=== PATIENT | male | born 1975 | race Asian ===

== ENCOUNTER 2017-02-18 18:53 | Inpatient (IN) | payer BC, OTHER ==
[2017-02-18] MEDS ORDERED: METHYLPREDNISOLONE INJ 125 MG/2 ML SDV IM ONE (19:13)
[2017-02-18] MEDS ORDERED: IPRATROPIUM/ALBUTEROL 0.5-2.5 MG/3 ML AMPUL NEB ONE ×3 (19:13→22:03)
--- NOTE | 2017-02-18 19:16 | ER Document Report ---
ED Medical Screen (RME) - General Chief Complaint: Asthma Exacerbation Stated Complaint: CONGESTION Time Seen by Provider: 02/18/17 19:12 Mode of Arrival: Ambulatory Information source: Patient TRAVEL OUTSIDE OF THE [place] IN LAST 30 DAYS: No - HPI Patient complains to provider of: cough, congestion, wheezing Onset: Yesterday - pt. sent to see his PCP yesterday for the above c/o -- was given abx and prednisone. States he is still wheezing today and having SOB and dyspnea - Related Data Allergies/Adverse Reactions: Penicillins Allergy (Verified 02/18/17 18:58) Home Medications: Current Home Medications Albuterol Sulfate [Albuterol Sulfate 2.5mg/3 mL] 1 inh IN Q4 PRN 02/18/17 [ History] Albuterol Sulfate [Ventolin Hfa] 2 inh IN Q4 PRN 02/18/17 [History] Levofloxacin [Levofloxacin] 1 tab PO DAILY 02/18/17 [History] Metformin HCl [Metformin HCl] 1 tab PO DAILY 02/18/17 [History] Montelukast Sodium [Montelukast Sodium] 1 tab PO DAILY 02/18/17 [History] Prednisone [Prednisone] 1 tab PO DAILY 02/18/17 [History] Past Medical History - Social History Chew tobacco use (# tins/day): No Frequency of alcohol use: None Drug Abuse: None Pulmonary Medical History: Reports: Hx Asthma Renal/ Medical History: Denies: Hx Peritoneal Dialysis Physical Exam - Vital signs Vitals: Temp Pulse Resp BP Pulse Ox 99.5 F 120 H 24 H 124/88 H 92 02/18/17 18:59 02/18/17 18:59 02/18/17 18:59 02/18/17 18:59 02/18/17 18:59 Course - Vital Signs Vital signs: Temp Pulse Resp BP Pulse Ox 99.5 F 120 H 24 H 124/88 H 92 02/18/17 18:59 02/18/17 18:59 02/18/17 18:59 02/18/17 18:59 02/18/17 18:59
--- NOTE | 2017-02-18 20:04 | RADIOLOGY REPORT (SQ) ---
EXAM DESCRIPTION: CHEST PA/LAT COMPLETED DATE/TIME: 02/18/2017 7:54 pm REASON FOR STUDY: sob COMPARISON: 03/21/2014. EXAM PARAMETERS: NUMBER OF VIEWS: two views TECHNIQUE: Digital Frontal and Lateral radiographic views of the chest acquired. RADIATION DOSE: NA LIMITATIONS: none FINDINGS: LUNGS AND PLEURA: No opacities, masses or pneumothorax. No pleural effusion. MEDIASTINUM AND HILAR STRUCTURES: No masses or contour abnormalities. HEART AND VASCULAR STRUCTURES: Heart normal size. No evidence for failure. BONES: No acute findings. HARDWARE: None in the chest. OTHER: No other significant finding. IMPRESSION: NO SIGNIFICANT RADIOGRAPHIC FINDING IN THE CHEST. TECHNICAL DOCUMENTATION: JOB ID: [id number] [email or web address]- All Rights Reserved
[2017-02-18 20:08] LABS: ABSOLUTE BASOPHILS # (AUTO) 0.1 10^3/uL (0.0-0.2); ABSOLUTE EOSINOPHILS # (AUTO) 0.1 10^3/uL (0.0-0.6); ABSOLUTE LYMPHOCYTES (AUTO) 0.7 10^3/uL (0.5-4.7); ABSOLUTE MONOCYTES (AUTO) 0.6 10^3/uL (0.1-1.4); ABSOLUTE NEUT (AUTO) 10.7 10^3/uL (1.7-8.2); BASOPHILS % (AUTO) 0.7 % (0-2); HEMATOCRIT 44.5 % (37.9-51.0); HEMOGLOBIN 14.5 g/dL (13.5-17.0); LYMPHOCYTES % (AUTO) 5.9 % (13-45); MEAN CORPUSCULAR HEMOGLOBIN 21.9 pg (27.0-33.4); MEAN CORPUSCULAR HGB CONC 32.6 g/dL (32.0-36.0); MEAN CORPUSCULAR VOLUME 67 fl (80-97); MONOCYTES % (AUTO) 5.2 % (3-13); RED BLOOD COUNT 6.64 10^6/uL (4.35-5.55); RED CELL DISTRIBUTION WIDTH 15.4 % (11.5-14.0); SEGMENTED NEUTROPHILS % (AUTO) 87.2 % (42-78); WHITE BLOOD COUNT 12.3 10^3/uL (4.0-10.5)
[2017-02-18 20:27] LABS: ALANINE AMINOTRANSFERASE 42 U/L (21-72); ALBUMIN 4.8 g/dL (3.5-5.0); ALKALINE PHOSPHATASE 84 U/L (38-126); ASPARTATE AMINO TRANSFERASE 22 U/L (17-59); BILIRUBIN,DIRECT 0.3 mg/dL (0.0-0.4); BILIRUBIN,TOTAL 1.2 mg/dL (0.2-1.3); BLOOD UREA NITROGEN 11 mg/dL (7-20); CALCIUM 9.5 mg/dL (8.4-10.2); CARBON DIOXIDE 23 mmol/L (22-30); CHLORIDE 102 mmol/L (98-107); CREATININE RESULT 1.25 mg/dL (0.52-1.25); GLUCOSE 110 mg/dL (75-110); TOTAL PROTEIN 8.3 g/dL (6.3-8.2)
[2017-02-18 20:37] LABS: POTASSIUM 4.3 mmol/L (3.6-5.0); SODIUM 144.8 mmol/L (137-145)
[2017-02-18 20:43] LABS: ANION GAP 20 (5-19)
[2017-02-18] MEDS ORDERED: ALBUTEROL SULFATE 0.083% NEB 2.5 MG/3 ML AMPUL NEB ONE ×5 (20:46→23:33)
--- NOTE | 2017-02-18 20:57 | ER Document Report ---
ED Respiratory Problem - General Chief Complaint: Asthma Exacerbation Stated Complaint: CONGESTION Time Seen by Provider: 02/18/17 19:12 Mode of Arrival: Ambulatory TRAVEL OUTSIDE OF THE [place] IN LAST 30 DAYS: No - HPI Patient complains to provider of: Cough, Short of breath Onset: Yesterday Duration: Worse/persistent Quality of pain: No pain Severity: Moderate Context: Hx asthma Short of Breath: Moderate Chest pain/discomfort: Tightness Cough: Productive Sputum amount: Small Sputum color: Yellow Sputum consistency: Mucoid At home treatment: Bronchodilators, CPAP, Oral steroids Associated symptoms: Congestion, Cough, Difficulty breathing, Short of breath, Wheezing Similar symptoms previously: Yes Recently seen / treated by doctor: Yes Notes: Patient is a 41-year-old male with history of asthma who presents to the emergency room complaining of upper respiratory symptoms that have been worsening over the past 2 days with wheezing, cough, cold and congestion, runny nose, cough is productive of light yellowish phlegm, he denies any, is noted to have a temperature of 99 5 in triage area, he did see his primary care provider yesterday and was started on Levaquin as well as prednisone 20 mg daily, prior to coming to the emergency room he used 4-5 nebulizer treatments at home and went through about half of an albuterol inhaler with no relief of symptoms - Related Data Allergies/Adverse Reactions: Penicillins Allergy (Verified 02/18/17 18:58) Home Medications: Current Home Medications Albuterol Sulfate [Albuterol Sulfate 2.5mg/3 mL] 1 inh IN Q4 PRN 02/18/17 [ History] Albuterol Sulfate [Ventolin Hfa] 2 inh IN Q4 PRN 02/18/17 [History] Levofloxacin [Levofloxacin] 1 tab PO DAILY 02/18/17 [History] Metformin HCl [Metformin HCl] 1 tab PO DAILY 02/18/17 [History] Montelukast Sodium [Montelukast Sodium] 1 tab PO DAILY 02/18/17 [History] Prednisone [Prednisone] 1 tab PO DAILY 02/18/17 [History] Past Medical History - General Information source: Patient - Social History Smoking Status: Former Smoker Chew tobacco use (# tins/day): No Frequency of alcohol use: None Drug Abuse: None Family History: Reviewed & Not Pertinent Patient has suicidal ideation: No Patient has homicidal ideation: No Pulmonary Medical History: Reports: Hx Asthma Renal/ Medical History: Denies: Hx Peritoneal Dialysis Review of Systems - Review of Systems Constitutional: No symptoms reported EENT: See HPI Cardiovascular: No symptoms reported Respiratory: See HPI Gastrointestinal: No symptoms reported Genitourinary: No symptoms reported Male Genitourinary: No symptoms reported Musculoskeletal: No symptoms reported Skin: No symptoms reported Hematologic/Lymphatic: No symptoms reported Neurological/Psychological: No symptoms reported -: Yes All other systems reviewed and negative Physical Exam - Vital signs Vitals: Temp Pulse Resp BP Pulse Ox 99.5 F 120 H 24 H 124/88 H 92 02/18/17 18:59 02/18/17 18:59 02/18/17 18:59 02/18/17 18:59 02/18/17 18:59 Interpretation: Tachycardic - General General appearance: Alert In distress: Mild - HEENT Head: Normocephalic, Atraumatic Eyes: Normal Conjunctiva: Normal Extraocular movements intact: Yes Eyelashes: Normal Pupils: PERRL Mucous membranes: Normal Pharynx: Normal Neck: Normal - Respiratory Respiratory status: Labored Chest status: Nontender Breath sounds: Nonproductive cough, Wheezing Chest palpation: Normal - Cardiovascular Rhythm: Regular, Tachycardia Heart sounds: Normal auscultation Murmur: No - Abdominal Inspection: Normal, Obese Distension: No distension Bowel sounds: Normal Tenderness: Nontender Organomegaly: No organomegaly - Back Back: Normal, Nontender - Extremities General upper extremity: Normal inspection, Nontender, Normal color, Normal ROM , Normal temperature General lower extremity: Normal inspection, Nontender, Normal color, Normal ROM , Normal temperature, Normal weight bearing. No: Susanne's sign - Neurological Neuro grossly intact: Yes Cognition: Normal Orientation: AAOx4 Wilson Coma Scale Eye Opening: Spontaneous Samra Coma Scale Verbal: Oriented Samra Coma Scale Motor: Obeys Commands Wilson Coma Scale Total: 15 Speech: Normal Motor strength normal: LUE, RUE, LLE, RLE Sensory: Normal - Psychological Associated symptoms: Normal affect, Normal mood - Skin Skin Temperature: Warm Skin Moisture: Dry Skin Color: Normal Course - Re-evaluation Re-evalutation: 02/18/17 23:37 Patient continues to have wheezing in all quintana, actually seems worse than 1 from I initially evaluated him, he has periods of desaturation going down to 85 % at times, therefore was placed on BiPAP and discussed with the hospitalist who agrees to admit for Dr. Medrano - Vital Signs Vital signs: Temp Pulse Resp BP Pulse Ox 99.5 F 120 H 22 H 124/88 H 96 02/18/17 18:59 02/18/17 18:59 02/18/17 23:31 02/18/17 18:59 02/18/17 23:31 - Laboratory Result Diagrams: 02/18/17 20:00 02/18/17 20:00 Laboratory results interpreted by me: 02/18/17 02/18/17 20:00 20:00 WBC 12.3 H RBC 6.64 H MCV 67 L MCH 21.9 L RDW 15.4 H Seg Neutrophils % 87.2 H Lymphocytes % 5.9 L Absolute Neutrophils 10.7 H Anion Gap 20 H Total Protein 8.3 H - Diagnostic Test Radiology reviewed: Image reviewed, Reports reviewed - EKG Interpretation by Me EKG shows normal: Sinus rhythm Rate: Tachycardia When compared to previous EKG there are: No significant change - Transfer of Care Care transferred to following provider: Dr. Huffman Critical Care Note - Critical Care Note Total time excluding time spent on procedures (mins): 35 Comments: Patient with acute exit exacerbation of asthma, requiring BiPAP placement, multiple breathing treatments, multiple re-evaluations and admission to the [facility] Discharge - Discharge Clinical Impression: Acute asthma exacerbation Qualifiers: Asthma severity: severe Asthma persistence: persistent Qualified Code(s): J45.51 - Severe persistent asthma with (acute) exacerbation Condition: Fair Disposition: ADMITTED INPATIENT Admitting Provider: Hospitalist Unit Admitted: [facility]
[2017-02-18 23:11] LABS: VENOUS BLOOD BASE EXCESS -1.3 mmol/L; VENOUS BLOOD HCO3 24.4 mmol/L (20-32); VENOUS BLOOD PCO2 44.3 mmHg (35-63); VENOUS BLOOD PH 7.36 (7.30-7.42)
[2017-02-18] MEDS ORDERED: ACETAMINOPHEN 325 MG TABLET PO PRN (23:34)
[2017-02-18] MEDS ORDERED: LEVALBUTEROL HCL NEB 1.25 MG/3 ML AMPUL NEB PRN (23:34)
[2017-02-19] MEDS: MAGNESIUM SULFATE/D5W 1 GM/100 ML RTUPB IV SCH ×2 (00:22→00:25)
[2017-02-19] MEDS: METHYLPREDNISOLONE INJ 125 MG/2 ML SDV IV SCH ×5 (00:23→23:09)
[2017-02-19] MEDS: NORMAL SALINE 1000 ML 1,000 ML IV PRN ×3 (00:24→18:23)
[2017-02-19 02:01] LABS: APPEARANCE,URINE CLEAR; BILIRUBIN,URINE NEGATIVE (NEGATIVE); GLUCOSE, URINE >=500 mg/dL (NEGATIVE); KETONES,URINE TRACE mg/dL (NEGATIVE); LEUKOCYTE ESTERASE,URINE NEGATIVE (NEGATIVE); NITRITE,URINE NEGATIVE (NEGATIVE); PROTEIN,URINE NEGATIVE (NEGATIVE); URINE SPECIFIC GRAVITY 1.017; UROBILINOGEN,URINE NEGATIVE mg/dL (<2.0)
[2017-02-19] MEDS: IPRATROPIUM/ALBUTEROL 0.5-2.5 MG/3 ML AMPUL NEB SCH ×4 (02:08→20:02)
[2017-02-19] MEDS ORDERED: INFLUENZA ADLT QUAD (36MOS+) 2017-18 VAC 0.5 ML SYR IM PRN (02:27)
[2017-02-19] MEDS ORDERED: DEXTROSE 50%-WATER 25 GM/50 ML DISP.SYRIN IV PRN ×2 (03:01)
[2017-02-19] MEDS ORDERED: DEXTROSE 40% GEL 15 GM TUBE PO PRN ×2 (03:01)
[2017-02-19] MEDS ORDERED: GLUCAGON,HUMAN RECOMB 1 MG INJ IM PRN (03:01)
[2017-02-19] MEDS ORDERED: KETOROLAC TROMETHAMINE INJ/PF 30 MG/1 ML SDV IV PRN (03:06)
--- NOTE | 2017-02-19 03:12 | PDOC H&P ---
History of Present Illness Admission Date/PCP: 02/18/17 23:40 DUC GALVEZ History of Present Illness: IGNACIO JEWELL is a 41 year old male with past medical history of asthma, diabetes , obstructive sleep apnea who presents to the emergency department with shortness of breath. Patient reports that he has had about 48 hours of sneezing , congestion, and rhinorrhea. He went to his primary care physician yesterday and was prescribed Levaquin and prednisone. He reports that he began having worsening chest tightness and difficulty breathing today and took a breathing treatment and used his inhaler but this did not help. He reports that he was hospitalized last year for his asthma. He denied any associated fevers or chills with this process but does report a history of yellow phlegm production. Patient received 6 nebulized treatments in the emergency department and required IV magnesium and the use of BiPAP in order to maintain an acceptable oxygen saturation. He is referred to the hospitalist service for asthma exacerbation. Past Medical History Pulmonary Medical History: Reports: Asthma, Sleep Apnea Endocrine Medical History: Reports: Diabetes Mellitus Type 2 Past Surgical History Past Surgical History: Reports: None Social History Smoking Status: Former Smoker Frequency of Alcohol Use: Occasional Hx Recreational Drug Use: No Hx Prescription Drug Abuse: No - Advance Directive Resuscitation Status: Full Code Surrogate healthcare decision maker:: , [place] Family History Family History: COPD, DM Parental Family History Reviewed: Yes Children Family History Reviewed: NA Sibling(s) Family History Reviewed.: Yes Medication/Allergy Home Medications: Albuterol Sulfate [Albuterol Sulfate 2.5mg/3 mL] 1 inh IN Q4 PRN 02/18/17 Albuterol Sulfate [Ventolin Hfa] 2 inh IN Q4 PRN 02/18/17 Levofloxacin [Levofloxacin] 1 tab PO DAILY 02/18/17 Metformin HCl [Metformin HCl] 1 tab PO DAILY 02/18/17 Montelukast Sodium [Montelukast Sodium] 1 tab PO DAILY 02/18/17 Prednisone [Prednisone] 1 tab PO DAILY 02/18/17 Allergies/Adverse Reactions: Penicillins Allergy (Verified 02/18/17 18:58) Review of Systems Constitutional: ABSENT: chills, fever(s), headache(s), weight gain, weight loss Eyes: ABSENT: visual disturbances Ears: ABSENT: hearing changes Nose, Mouth, and Throat: PRESENT: as per HPI Cardiovascular: ABSENT: chest pain, dyspnea on exertion, edema, orthropnea, palpitations Respiratory: PRESENT: as per HPI, cough, dyspnea, sputum. ABSENT: hemoptysis Gastrointestinal: ABSENT: abdominal pain, constipation, diarrhea, hematemesis, hematochezia, nausea, vomiting Genitourinary: ABSENT: dysuria, hematuria Musculoskeletal: ABSENT: joint swelling Integumentary: PRESENT: rash - Right arm, right leg. ABSENT: wounds Neurological: ABSENT: abnormal gait, abnormal speech, confusion, dizziness, focal weakness, syncope Psychiatric: ABSENT: anxiety, depression, homidical ideation, suicidal ideation Endocrine: ABSENT: cold intolerance, heat intolerance, polydipsia, polyuria Hematologic/Lymphatic: ABSENT: easy bleeding, easy bruising Physical Exam Vital Signs: Temp Pulse Resp BP Pulse Ox 97.6 F 104 H 19 140/75 H 91 L 02/19/17 01:58 02/19/17 01:58 02/19/17 01:58 02/19/17 00:00 02/19/17 01:58 Intake & Output 02/17/17 02/18/17 02/19/17 06:59 06:59 06:59 Weight 122.2 kg General appearance: PRESENT: severe distress, well-developed, well-nourished Head exam: PRESENT: atraumatic, normocephalic Eye exam: PRESENT: conjunctiva pink, EOMI, PERRLA. ABSENT: scleral icterus Ear exam: PRESENT: normal external ear exam Mouth exam: PRESENT: dry mucosa, tongue midline Neck exam: ABSENT: JVD, lymphadenopathy, thyromegaly, tracheal deviation Respiratory exam: PRESENT: accessory muscle use, chest wall tenderness, retraction - Supraclavicular, symmetrical, tachypnea, wheezes. ABSENT: crackles , prolonged expiratory phas, rales, rhonchi, unlabored Cardiovascular exam: PRESENT: RRR, +S1, +S2, tachycardia. ABSENT: diastolic murmur, gallop, rubs, systolic murmur Pulses: PRESENT: normal dorsalis pedis pul Vascular exam: PRESENT: normal capillary refill GI/Abdominal exam: PRESENT: normal bowel sounds, soft. ABSENT: distended, firm , guarding, mass, organolmegaly, rebound, rigid, tenderness Rectal exam: PRESENT: deferred Extremities exam: PRESENT: full ROM. ABSENT: calf tenderness, clubbing, pedal edema Neurological exam: PRESENT: alert, awake, oriented to person, oriented to place , oriented to time, oriented to situation, CN II-XII grossly intact. ABSENT: motor sensory deficit Psychiatric exam: PRESENT: appropriate affect, normal mood. ABSENT: homicidal ideation, suicidal ideation Skin exam: PRESENT: dry, intact, rash - Linear erythematous papular rash on his medial right arm and right leg, warm. ABSENT: cyanosis Results Laboratory Results: 02/19/17 01:35 Urine Color YELLOW Urine Appearance CLEAR Urine pH 5.0 Ur Specific [place] 1.017 Urine Protein NEGATIVE Urine Glucose (UA) >=500 H Urine Ketones TRACE H Urine Blood SMALL H Urine Nitrite NEGATIVE Ur Leukocyte Esterase NEGATIVE Urine WBC (Auto) 0 02/19/17 00:19 Troponin I < 0.012 02/18/17 02/18/17 02/18/17 20:00 20:00 20:00 WBC 12.3 H RBC 6.64 H Hgb 14.5 MCV 67 L Plt Count 269 VBG pH Sodium 144.8 Potassium 4.3 Chloride 102 Carbon Dioxide 23 Anion Gap 20 H BUN 11 Creatinine 1.25 Albumin 4.8 Influenza A (Rapid) NEGATIVE Influenza B (Rapid) NEGATIVE 02/18/17 23:01 WBC RBC Hgb MCV Plt Count VBG pH 7.36 Sodium Potassium Chloride Carbon Dioxide Anion Gap BUN Creatinine Albumin Influenza A (Rapid) Influenza B (Rapid) Impressions: Chest X-Ray 02/18/17 19:13 IMPRESSION: NO SIGNIFICANT RADIOGRAPHIC FINDING IN THE CHEST. Status: Imported from PACS Assessment & Plan - Diagnosis (1) Acute asthma exacerbation Qualifiers: Asthma severity: severe Asthma persistence: persistent Qualified Code(s) : J45.51 - Severe persistent asthma with (acute) exacerbation Is this a current diagnosis for this admission?: Yes Plan: Place patient on Solu-Medrol 125 mg IV every 6 and scheduled duo nebs as well as as needed Xopenex. Continue BiPAP as needed. (2) JAMES (obstructive sleep apnea) Is this a current diagnosis for this admission?: Yes Plan: Patient normally uses CPAP with a setting of 12. Tonight he will use BiPAP. (3) DM2 (diabetes mellitus, type 2) Qualifiers: Diabetes mellitus complication status: without complication Diabetes mellitus fci insulin use: without terminal manager use Qualified Code(s): E11.9 - Type 2 diabetes mellitus without complications Is this a current diagnosis for this admission?: Yes Plan: Patient reports prediabetes, but is already on Metformin, so I suspect he has very well controlled type 2 diabetes. We will perform Accu-Cheks and sliding scale insulin as patient will be on IV steroids (4) Poison yan dermatitis Is this a current diagnosis for this admission?: Yes Plan: Calamine lotion tid (5) Severe obesity (BMI 35.0-35.9 with comorbidity) Is this a current diagnosis for this admission?: Yes Plan: Encourage appropriate weight loss under the guidance of his physician. - Time Time Spent: 30 to 50 Minutes Medications reviewed and adjusted accordingly: Yes Anticipated discharge: Home Within: Other - Upon improvement of symptomatology - Inpatient Certification Based on my medical assessment, after consideration of the patient's comorbidities, presenting symptoms, or acuity I expect that the services needed warrant INPATIENT care.: Yes I certify that my determination is in accordance with my understanding of Medicare's requirements for reasonable and necessary INPATIENT services [42 CFR 412.3e].: Yes Medical Necessity: Need For IV Fluids, Need for Nebulizer Therapy and Monitoring of Response Post Hospital Care: D/C Groundskeeper Documentation
[2017-02-19 06:20] LABS: HEMATOCRIT 39.6 % (37.9-51.0); HEMOGLOBIN 12.9 g/dL (13.5-17.0); HGB HCT DIFFERENCE -0.9; MEAN CORPUSCULAR HGB CONC 32.5 g/dL (32.0-36.0); MEAN CORPUSCULAR VOLUME 68 fl (80-97); RED BLOOD COUNT 5.86 10^6/uL (4.35-5.55); RED CELL DISTRIBUTION WIDTH 15.7 % (11.5-14.0); WHITE BLOOD COUNT 9.1 10^3/uL (4.0-10.5)
[2017-02-19 06:40] LABS: ANION GAP 19 (5-19); BLOOD UREA NITROGEN 14 mg/dL (7-20); CALCIUM 9.4 mg/dL (8.4-10.2); CARBON DIOXIDE 22 mmol/L (22-30); CHLORIDE 101 mmol/L (98-107); CREATININE RESULT 1.28 mg/dL (0.52-1.25); GLUCOSE 242 mg/dL (75-110); POTASSIUM 4.6 mmol/L (3.6-5.0); SODIUM 141.5 mmol/L (137-145)
[2017-02-19] MEDS: INSULIN LISPRO 100 UNIT/ML 3 ML VIAL SUBCUT PRN ×3 (09:02→23:09)
[2017-02-19] MEDS: METFORMIN HCL 500 MG TABLET PO SCH (09:03)
[2017-02-19] MEDS: ENOXAPARIN SODIUM INJ 40 MG/0.4 ML DISP.SYRIN SUBCUT SCH (09:03)
[2017-02-19] MEDS: GUAIFENESIN 600 MG TABLET.SA PO SCH ×2 (09:03→21:31)
[2017-02-19] MEDS: FAMOTIDINE 20 MG TABLET PO SCH ×2 (09:04→21:31)
--- NOTE | 2017-02-19 09:14 | EKG REPORT ---
SEVERITY:- BORDERLINE ECG - SINUS TACHYCARDIA BORDERLINE INFERIOR Q WAVES : Confirmed by: Trista Petty 19-Feb-2017 09:14:08
[2017-02-19] MEDS: CALAMINE/ZINC OXIDE LOTION 177 ML/BOTTLE TP SCH ×3 (12:39→18:20)
--- NOTE | 2017-02-19 13:20 | Progress Note ---
Provider Note Provider Note: Patient seen after midnight admission has tolerated nebulizers well seen to be less wheezing stated by the patient and staff. Patient states he feels a little better. Afebrile not concerning for signs of sepsis or infection suspect it was a asthmatic event. Continue to monitor.
[2017-02-19] MEDS: MONTELUKAST SODIUM 10 MG TABLET PO SCH (21:31)
[2017-02-20] MEDS: IPRATROPIUM/ALBUTEROL 0.5-2.5 MG/3 ML AMPUL NEB SCH ×4 (02:00→20:03)
[2017-02-20] MEDS: METHYLPREDNISOLONE INJ 125 MG/2 ML SDV IV SCH (06:12)
[2017-02-20] MEDS: NORMAL SALINE 1000 ML 1,000 ML IV PRN (06:12)
[2017-02-20] MEDS: ENOXAPARIN SODIUM INJ 40 MG/0.4 ML DISP.SYRIN SUBCUT SCH (10:02)
[2017-02-20] MEDS: METFORMIN HCL 500 MG TABLET PO SCH (10:03)
[2017-02-20] MEDS: FAMOTIDINE 20 MG TABLET PO SCH ×2 (10:03→21:16)
[2017-02-20] MEDS: GUAIFENESIN 600 MG TABLET.SA PO SCH ×2 (10:03→21:16)
[2017-02-20] MEDS: CALAMINE/ZINC OXIDE LOTION 177 ML/BOTTLE TP SCH ×3 (10:04→17:39)
[2017-02-20] MEDS ORDERED: FLUTICASONE NASAL SPRAY 50 MCG/SPRY 120 SPRAY/16 GM NASL ONE (11:39)
[2017-02-20] MEDS ORDERED: LORATADINE 10 MG TABLET PO ONE (11:42)
[2017-02-20] MEDS ORDERED: PHENOL/SODIUM PHENOLATE 100 SPRAY/177 ML BOTTLE PO PRN (11:44)
--- NOTE | 2017-02-20 12:21 | PROGRESS NOTE E ---
Progress Note NAME: IGNACIO SHEARER : 1975 AGE: 41Y DATE: 02/20/2017 ROOM: 313 CHIEF COMPLAINT: Shortness of breath. SUBJECTIVE: The patient is lying in bed. He still does have his BiPAP in place. The patient denies any nausea, vomiting, diarrhea. The patient admits to significant sore throat, which he states has been present since last week and is what initially took him to his primary care provider's office. The patient himself denies any fevers, chills. No dizziness, weakness. The patient states that he has been producing a good amount of sputum; however, he is still quite short of breath, even with ambulation to the bathroom. The patient does not voice any other concerns at this time. REVIEW OF SYSTEMS: Negative. MEDICATIONS: Medications have been reviewed. OBJECTIVE: GENERAL: The patient is a 41-year-old male, who is awake, alert. He is oriented to person, place, time and situation. He is conversational, verbal. Does not appear to be in any acute distress. He is now able to fully complete sentences. VITAL SIGNS ARE FOLLOWS: Temperature is 97.6, pulse 62, respirations 17, blood pressure 120/90. Oxygen saturation 98% on 30% FiO2 on BiPAP. SKIN: Warm and dry. No rashes. Not diaphoretic. HEENT: Pupils equal, round, reactive to light and accommodation. Conjunctivae is pink. The patient does have left mandibular lymphadenopathy, which is obviously asymmetrical in comparison to the patient's right side. NECK: There is no JVP. CARDIOVSCULAR: Heart is regular. There is no murmur or rub. CHEST: The patient does have expiratory wheezes noted throughout both lung quintana. ABDOMEN: Soft, nontender, nondistended. BACK: No CVA tenderness or sacral edema. EXTREMITIES: No clubbing, cyanosis or edema. PSYCHIATRIC: Appropriate affect. Pleasant mood. DIAGNOSTICS: Lab values are as follows: Hematology on 02/19/2017: WBC is 9.1, hemoglobin is 12.9, hematocrit is 39.6, platelet count is 347,000. Chemistry obtained on 02/19/2017: Sodium is 141, potassium 4.6, chloride is 101, carbon dioxide is 22. BUN 14, creatinine 1.28, glucose 242. Calcium is 9.4. IMPRESSION AND PLAN: 1. ACUTE ASTHMA EXACERBATION. Will continue with supplemental O2, but will transition steroids to p.o. The patient does have scheduled DuoNeb, and will continue p.r.n. for breakthrough symptoms. The patient is now producing sputum; therefore, will add a flutter valve and follow him. 2. POSSIBLE PAROTIDITIS. The patient does have significantly swollen jaw with evidence of lymphadenopathy. Will obtain contrasted CT for further evaluation and will add clindamycin for coverage, and follow. 3. SORE THROAT: I feel the patient may likely have a post-nasal drip. Will add Flonase, Chloraseptic spray and antihistamines, and follow. 4. OBSTRUCTIVE SLEEP APNEA. The patient normally uses a CPAP with a setting of 12. 5. DIABETES MELLITUS TYPE 2. Continue metformin and continue sliding scale coverage, given the patient will be on steroids. 6. POISON MIRLANDE DERMATITIS. Continue calamine lotion p.r.n. 7. MORBID OBESITY, WITH A BMI OF 36. Will encourage weight reduction and followup. DISPOSITION: The patient is a FULL CODE. Pending patient's symptomatology and diagnostic findings, will reevaluate in the a.m. for discharge. Time spent on this followup, including assessment, plan, physical examination, patient education, review of previous and current medical records is 30 minutes. DICTATING PHYSICIAN: MARY QUESADA NP [id number] PHY#: [id number] ID: [id number] JOB#: [id number] ACCT: [id number] cc: >
[2017-02-20] MEDS ORDERED: CLINDAMYCIN HCL 150 MG CAPSULE PO ONE (12:30)
[2017-02-20] MEDS: PREDNISONE 20 MG TABLET PO SCH (17:36)
[2017-02-20] MEDS: LACTOBACILLUS ACIDOPHILUS 250 MG TAB PO SCH (17:36)
--- NOTE | 2017-02-20 17:37 | RADIOLOGY REPORT (SQ) ---
EXAM DESCRIPTION: CT FACIAL AREA WITH COMPLETED DATE/TIME: 02/20/2017 4:42 pm REASON FOR STUDY: Left jaw mass? parotitis? COMPARISON: None. TECHNIQUE: Post contrast images through the facial bones and orbits windowed for bone and soft tissu e. Additional coronal and sagittal reconstructed images reviewed. All images stored on PACS. All CT scanners at this facility use dose modulation, iterative reconstruction, and/or weight based d osing when appropriate to reduce radiation dose to as low as reasonably achievable (ALARA). [facility]: Dose Right [facility]: CareDose [facility]: Dose Right [facility]: Teradose 4D [facility]: PrecisionHawk CONTRAST TYPE AND DOSE: contrast/concentration: Isovue 370.00 mg/ml; Total Contrast Delivered: 50.0 ml; Total Saline Delivered: 55.0 ml RENAL FUNCTION: Creatinine 1.3 BUN 14 RADIATION DOSE: 45.9 mGy LIMITATIONS: None. FINDINGS: FACIAL BONES: No fracture or bone lesion. ORBITS: Intact. No fracture. Symmetric intact globes and retroorbital soft tissues. PARANASAL SINUSES: Mild mucoperiosteal changes in both maxillary sinuses. There is opacification of a couple of ethmoid air cells. No nasal polyps. Maxillary sinus outlets are patent. SOFT TISSUES: The left parotid gland is perhaps slightly larger than the right. The attenuation is t he same in each. There is no enhancement. There is no edema. There is no stranding in the fat arou nd the parotid gland. There is no mass in the neck. INFERIOR BRAIN: Limited view. No acute findings. OTHER: No other significant finding. IMPRESSION: Mild sinus disease. There is no evidence of parotitis. There is no mass in the neck. TECHNICAL DOCUMENTATION: JOB ID: [id number] Quality ID # [id number]: Final reports with documentation of one or more dose reduction techniques (e.g., Au tomated exposure control, adjustment of the mA and/or kV according to patient size, use of iterative reconstruction technique) 2010 [employer]- All Rights Reserved
[2017-02-20] MEDS: CLINDAMYCIN HCL 150 MG CAPSULE PO SCH ×2 (17:42→23:30)
[2017-02-20] MEDS: FLUTICASONE NASAL SPRAY 50 MCG/SPRY 120 SPRAY/16 GM NASL SCH (21:15)
[2017-02-20] MEDS: MONTELUKAST SODIUM 10 MG TABLET PO SCH (21:16)
[2017-02-21] MEDS: IPRATROPIUM/ALBUTEROL 0.5-2.5 MG/3 ML AMPUL NEB SCH ×4 (02:23→19:52)
[2017-02-21] MEDS: CLINDAMYCIN HCL 150 MG CAPSULE PO SCH ×3 (05:36→17:19)
[2017-02-21 07:16] LABS: ANION GAP 12 (5-19); BLOOD UREA NITROGEN 24 mg/dL (7-20); CALCIUM 8.9 mg/dL (8.4-10.2); CARBON DIOXIDE 28 mmol/L (22-30); CHLORIDE 102 mmol/L (98-107); CREATININE RESULT 1.36 mg/dL (0.52-1.25); GLUCOSE 125 mg/dL (75-110); POTASSIUM 4.4 mmol/L (3.6-5.0); SODIUM 142.4 mmol/L (137-145)
[2017-02-21] MEDS: ENOXAPARIN SODIUM INJ 40 MG/0.4 ML DISP.SYRIN SUBCUT SCH (09:11)
[2017-02-21] MEDS: LORATADINE 10 MG TABLET PO SCH (09:12)
[2017-02-21] MEDS: PREDNISONE 20 MG TABLET PO SCH ×2 (09:13→17:19)
[2017-02-21] MEDS: LACTOBACILLUS ACIDOPHILUS 250 MG TAB PO SCH ×2 (09:13→17:20)
[2017-02-21] MEDS: FAMOTIDINE 20 MG TABLET PO SCH ×2 (09:13→22:48)
[2017-02-21] MEDS: GUAIFENESIN 600 MG TABLET.SA PO SCH ×2 (09:13→22:48)
[2017-02-21] MEDS: FLUTICASONE NASAL SPRAY 50 MCG/SPRY 120 SPRAY/16 GM NASL SCH ×2 (09:14→22:49)
[2017-02-21] MEDS: CALAMINE/ZINC OXIDE LOTION 177 ML/BOTTLE TP SCH ×3 (09:20→17:21)
--- NOTE | 2017-02-21 12:05 | PDOC PROGRESS REPORT ---
Subjective Progress Note for:: 02/21/17 Subjective:: Patient was seen resting in bed comfortably with family present. He had just returned from ambulating in the hallways on room air. Nursing reports that his oxygen saturations did drop to 89% and heart rate raised to 101. He did not, however, experienced dyspnea and was conversational while ambulating which is a significant improvement overnight. He is continuing to use BiPAP as needed throughout the day. He does have a CPAP machine which he uses nightly at home. He also has access to a nebulizer, however, states that this she has greater than 10 years old and does not aerosolized his medicines well. He requests a new one upon discharge. He reports continuous wheezing, frequent nonproductive cough, sore throat, and shortness of breath with activity. Overall, he reports that he is feeling much improved as compared to day of admission. He denies fever, chills, regalado, dizziness, chest pain, palpitations. He has no other questions or concerns today. Physical Exam Vital Signs: Temp Pulse Resp BP Pulse Ox 97.3 F 61 17 114/68 95 02/21/17 08:26 02/21/17 08:26 02/21/17 08:26 02/21/17 08:26 02/21/17 08:26 Pulse Oximeter Continuous Start: 02/18/17 23: 35 Freq: RTQ4 Status: Active Document 02/21/17 08:03 [facility] [place], [place] (Rec: 02/21/17 10:09 [facility] [place] [place] [email or web address]) Pulse Oximetry Assessment Oxygen Saturation (92-100) 97 Oxygen Delivery Method Bi-pap Fraction of Inspired Oxygen (FIO2) 30 Equipment Usage Equipment in Use Continuous SpO2 Machine # N 4 Intake & Output 02/20/17 02/21/17 02/22/17 06:59 06:59 06:59 Intake Total 0003 6771 Balance 4773 1451 Weight 122.4 kg 123.6 kg General appearance: PRESENT: no acute distress, well-developed, well-nourished, other - overweight Head exam: PRESENT: atraumatic, normocephalic Eye exam: PRESENT: conjunctiva pink, EOMI, PERRLA. ABSENT: scleral icterus Ear exam: PRESENT: normal external ear exam Mouth exam: PRESENT: moist, tongue midline, other - mandibular lymphadenopathy; chronic Neck exam: ABSENT: carotid bruit, JVD, lymphadenopathy, thyromegaly Respiratory exam: PRESENT: symmetrical, unlabored, wheezes - Expiratory and inspiratory wheezing throughout. ABSENT: rales, rhonchi, tachypnea Cardiovascular exam: PRESENT: RRR. ABSENT: diastolic murmur, rubs, systolic murmur Pulses: PRESENT: normal dorsalis pedis pul Vascular exam: PRESENT: normal capillary refill GI/Abdominal exam: PRESENT: normal bowel sounds, soft. ABSENT: distended, guarding, mass, organolmegaly, rebound, tenderness Rectal exam: PRESENT: deferred Extremities exam: PRESENT: full ROM. ABSENT: calf tenderness, clubbing, pedal edema Neurological exam: PRESENT: alert, awake, oriented to person, oriented to place , oriented to time, oriented to situation, CN II-XII grossly intact. ABSENT: motor sensory deficit Psychiatric exam: PRESENT: appropriate affect, normal mood. ABSENT: homicidal ideation, suicidal ideation Skin exam: PRESENT: dry, intact, warm. ABSENT: cyanosis, rash Results Laboratory Results: 02/19/17 05:28 02/21/17 05:31 02/21/17 05:31 Sodium 142.4 Potassium 4.4 Chloride 102 Carbon Dioxide 28 Anion Gap 12 BUN 24 H Creatinine 1.36 H Est GFR ( Amer) > 60 Est GFR (Non-Af Amer) 58 L Glucose 125 H Calcium 8.9 02/19/17 02/19/17 02/19/17 00:19 05:28 12:30 Troponin I < 0.012 < 0.012 < 0.012 Impressions: Chest X-Ray 02/18/17 19:13 IMPRESSION: NO SIGNIFICANT RADIOGRAPHIC FINDING IN THE CHEST. Facial Bones CT 02/20/17 00:00 IMPRESSION: Mild sinus disease. There is no evidence of parotitis. There is no mass in the neck. Assessment & Plan - Diagnosis (1) Acute asthma exacerbation Qualifiers: Asthma severity: severe Asthma persistence: persistent Qualified Code(s) : J45.51 - Severe persistent asthma with (acute) exacerbation Is this a current diagnosis for this admission?: Yes Plan: Improving; pt now using BiPAP prn and qHS. Otherwise, he is maintaining oxygen saturations on room air while at rest. Ambulatory room air saturations did drop to 89%. Continues to have wheezing throughout. Will continue steroids and scheduled Duonebs. 1- BiPap qHS and prn 2- Supplemental oxygen to keep oxygen saturations > 90% 3- Prednisone 40 mg p.o BID 4- Scheduled Duonebs and prn Xopenex 5- Singulair daily 6- Resume Advair (2) Lymphadenopathy, submandibular Is this a current diagnosis for this admission?: Yes Plan: Patient and family member report several months of facial swelling. He has been seen by his dentist and primary care provider who is currently attempting to find an in network referral to ENT for evaluation. Contrasted facial CT was completed yesterday and demonstrated mild sinus disease without evidence of parotiditis or masses in the neck. He was started on clindamycin yesterday for empiric coverage parotiditis; this will be continued as it will also provide appropriate coverage for sinusitis which may be the source of his lymphadenopathy. Results were discussed with the patient, recommend that he follow-up with primary care provider and continue with plan to be evaluated by ENT if symptoms do not resolve after completion of antibiotic course. (3) DM2 (diabetes mellitus, type 2) Qualifiers: Diabetes mellitus complication status: without complication Diabetes mellitus custodial insulin use: without custodial use Qualified Code(s): E11.9 - Type 2 diabetes mellitus without complications Is this a current diagnosis for this admission?: Yes Plan: 1-continue metformin [id number] before meals and at bedtime with sliding scale coverage (4) JAMES (obstructive sleep apnea) Is this a current diagnosis for this admission?: Yes Plan: 1- BiPAP qHS (5) Poison yan dermatitis Is this a current diagnosis for this admission?: Yes Plan: Calamine prn (6) Severe obesity (BMI 35.0-35.9 with comorbidity) Is this a current diagnosis for this admission?: Yes (7) Sore throat Is this a current diagnosis for this admission?: Yes Plan: Likely r/t post nasal drip; now with CT confirmed mild sinusitis supporting conclusion. 1- Continue with flonase, chloraseptic spray, antihistamines. 2- Encouraged p.o. fluid intake - Time Time Spent with patient: 25-34 minutes Medications reviewed and adjusted accordingly: Yes Anticipated discharge: Home Within: within 24 hours, within 48 hours - Inpatient Certification Medical Necessity: Need for Nebulizer Therapy and Monitoring of Response
[2017-02-21] MEDS: NORMAL SALINE 1000 ML 1,000 ML IV PRN (12:28)
[2017-02-21] MEDS: MONTELUKAST SODIUM 10 MG TABLET PO SCH (22:48)
[2017-02-21] MEDS: FLUTICASONE/SALMETEROL DISKUS 500-50 MCG/DOSE IH SCH (22:50)
[2017-02-22] MEDS: CLINDAMYCIN HCL 150 MG CAPSULE PO SCH ×5 (01:51→23:06)
[2017-02-22] MEDS: IPRATROPIUM/ALBUTEROL 0.5-2.5 MG/3 ML AMPUL NEB SCH ×4 (02:25→19:58)
[2017-02-22 05:18] LABS: ANION GAP 12 (5-19); BLOOD UREA NITROGEN 25 mg/dL (7-20); CALCIUM 8.8 mg/dL (8.4-10.2); CARBON DIOXIDE 29 mmol/L (22-30); CHLORIDE 101 mmol/L (98-107); CREATININE RESULT 1.35 mg/dL (0.52-1.25); GLUCOSE 99 mg/dL (75-110); POTASSIUM 4.8 mmol/L (3.6-5.0); SODIUM 141.9 mmol/L (137-145)
[2017-02-22] MEDS: ENOXAPARIN SODIUM INJ 40 MG/0.4 ML DISP.SYRIN SUBCUT SCH (10:12)
[2017-02-22] MEDS: FAMOTIDINE 20 MG TABLET PO SCH ×2 (10:13→21:07)
[2017-02-22] MEDS: LORATADINE 10 MG TABLET PO SCH (10:13)
[2017-02-22] MEDS: PREDNISONE 20 MG TABLET PO SCH (10:13)
[2017-02-22] MEDS: LACTOBACILLUS ACIDOPHILUS 250 MG TAB PO SCH ×2 (10:13→18:39)
[2017-02-22] MEDS: GUAIFENESIN 600 MG TABLET.SA PO SCH ×2 (10:13→21:07)
[2017-02-22] MEDS: FLUTICASONE NASAL SPRAY 50 MCG/SPRY 120 SPRAY/16 GM NASL SCH ×2 (10:16→21:07)
[2017-02-22] MEDS: CALAMINE/ZINC OXIDE LOTION 177 ML/BOTTLE TP SCH ×3 (10:17→18:39)
[2017-02-22] MEDS: FLUTICASONE/SALMETEROL DISKUS 500-50 MCG/DOSE IH SCH ×2 (10:17→21:07)
[2017-02-22] MEDS: NORMAL SALINE 1000 ML 1,000 ML IV PRN ×2 (11:43→19:37)
--- NOTE | 2017-02-22 14:15 | PDOC PROGRESS REPORT ---
Subjective Progress Note for:: 02/22/17 Subjective:: Patient was seen resting in bed comfortably on room air. He complains of continued dyspnea on exertion and audible wheezes. He states that he does not feel ready to be discharged home at this time. He denies fever, chills, regalado, dizziness, chest pain, palpitations, and cough. He has no other questions or concerns today. Physical Exam Vital Signs: Temp Pulse Resp BP Pulse Ox 97.5 F 70 16 125/79 93 02/22/17 12:14 02/22/17 12:14 02/22/17 12:14 02/22/17 12:14 02/22/17 12:45 Pulse Oximeter Continuous Start: 02/18/17 23: 35 Freq: RTQ4 Status: Active Document 02/22/17 12:45 [facility] (Rec: 02/22/17 12:49 [email or web address] [email or web address]) Pulse Oximetry Assessment Oxygen Saturation (92-100) 93 Oxygen Delivery Method Nasal Cannula Fraction of Inspired Oxygen (FIO2) 28 Equipment Usage Equipment in Use Continuous SpO2 Machine # N 4 Intake & Output 02/21/17 02/22/17 02/23/17 06:59 06:59 06:59 Intake Total 1451 3577 594 Balance 1451 3577 594 Weight 123.6 kg 123.9 kg General appearance: PRESENT: no acute distress, obese, well-developed, well- nourished Head exam: PRESENT: atraumatic, normocephalic Eye exam: PRESENT: conjunctiva pink, EOMI, PERRLA. ABSENT: scleral icterus Ear exam: PRESENT: normal external ear exam Mouth exam: PRESENT: moist, tongue midline Neck exam: ABSENT: carotid bruit, JVD, lymphadenopathy, thyromegaly Respiratory exam: PRESENT: clear to auscultation drake, wheezes - Inspiratory and expiratory wheezes throughout. ABSENT: rales, rhonchi, tachypnea, unlabored Cardiovascular exam: PRESENT: RRR, +S1, +S2. ABSENT: diastolic murmur, rubs, systolic murmur, tachycardia Pulses: PRESENT: normal dorsalis pedis pul Vascular exam: PRESENT: normal capillary refill GI/Abdominal exam: PRESENT: normal bowel sounds, soft. ABSENT: distended, guarding, mass, organolmegaly, rebound, tenderness Rectal exam: PRESENT: deferred Extremities exam: PRESENT: full ROM. ABSENT: calf tenderness, clubbing, pedal edema Neurological exam: PRESENT: alert, awake, oriented to person, oriented to place , oriented to time, oriented to situation, CN II-XII grossly intact. ABSENT: motor sensory deficit Psychiatric exam: PRESENT: appropriate affect, normal mood. ABSENT: homicidal ideation, suicidal ideation Skin exam: PRESENT: dry, intact, warm. ABSENT: cyanosis, rash Results Laboratory Results: 02/19/17 05:28 02/22/17 04:12 02/22/17 04:12 Sodium 141.9 Potassium 4.8 Chloride 101 Carbon Dioxide 29 Anion Gap 12 BUN 25 H Creatinine 1.35 H Est GFR ( Amer) > 60 Est GFR (Non-Af Amer) 58 L Glucose 99 Calcium 8.8 02/19/17 02/19/17 02/19/17 00:19 05:28 12:30 Troponin I < 0.012 < 0.012 < 0.012 Impressions: Chest X-Ray 02/18/17 19:13 IMPRESSION: NO SIGNIFICANT RADIOGRAPHIC FINDING IN THE CHEST. Facial Bones CT 02/20/17 00:00 IMPRESSION: Mild sinus disease. There is no evidence of parotitis. There is no mass in the neck. Assessment & Plan - Diagnosis (1) Acute asthma exacerbation Qualifiers: Asthma severity: severe Asthma persistence: persistent Qualified Code(s) : J45.51 - Severe persistent asthma with (acute) exacerbation Is this a current diagnosis for this admission?: Yes Plan: Slow improvements; pt now using BiPAP qHS only. Otherwise, he is maintaining oxygen saturations on room air while at rest. He did maintain ambulatory room air saturations greater than 92% with a heart rate of 86. However, he continues to have wheezing throughout. Will continue steroids and scheduled Duonebs. 1- BiPap qHS and prn 2- Supplemental oxygen to keep oxygen saturations > 90% 3- Escalate steroid dosing to Solu-Medrol 40 mg every 8 4- Scheduled Duonebs and prn Xopenex 5- Singulair daily 6- Continue Advair (2) ARF (acute renal failure) Qualifiers: Acute renal failure type: unspecified Qualified Code(s): N17.9 - Acute kidney failure, unspecified Is this a current diagnosis for this admission?: Yes Plan: Patient with acute renal insufficiency, creatinine unchanged today at 1.35 which is slightly elevated from time of admission at 1.25. Unknown baseline kidney function, there is likely a component of chronic kidney disease given his obesity and uncontrolled type 2 diabetes mellitus. Will avoid nephrotoxic medications and continue IV fluids. 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 Likely r/t post nasal drip; now with CT confirmed mild sinusitis supporting conclusion. 1- Continue with flonase, chloraseptic spray, antihistamines. 2- Encouraged p.o. fluid intake (7) Severe obesity (BMI 35.0-35.9 with comorbidity) Is this a current diagnosis for this admission?: Yes (8) Lymphadenopathy, submandibular Is this a current diagnosis for this admission?: Yes Plan: Stable. Patient and family member report several months of facial swelling. He has been seen by his dentist and primary care provider who is currently attempting to find an in network referral to ENT for evaluation. Contrasted facial CT was completed yesterday and demonstrated mild sinus disease without evidence of parotiditis or masses in the neck. He was started on clindamycin yesterday for empiric coverage parotiditis; this will be continued as it will also provide appropriate coverage for sinusitis which may be the source of his lymphadenopathy. Results were discussed with the patient, recommend that he follow-up with primary care provider and continue with plan to be evaluated by ENT if symptoms do not resolve after completion of antibiotic course. - Time Time Spent with patient: 25-34 minutes Medications reviewed and adjusted accordingly: Yes Anticipated discharge: Home Within: within 48 hours - Inpatient Certification Medical Necessity: Need For IV Fluids
[2017-02-22] MEDS: METHYLPREDNISOLONE INJ 40 MG/1 ML SDV IV SCH ×2 (14:25→21:06)
[2017-02-22] MEDS: MONTELUKAST SODIUM 10 MG TABLET PO SCH (21:07)
[2017-02-23] MEDS: IPRATROPIUM/ALBUTEROL 0.5-2.5 MG/3 ML AMPUL NEB SCH ×4 (02:03→20:01)
[2017-02-23] MEDS: NORMAL SALINE 1000 ML 1,000 ML IV PRN (03:42)
[2017-02-23] MEDS: METHYLPREDNISOLONE INJ 40 MG/1 ML SDV IV SCH ×3 (05:06→21:44)
[2017-02-23] MEDS: CLINDAMYCIN HCL 150 MG CAPSULE PO SCH ×4 (05:06→23:22)
[2017-02-23 06:18] LABS: HEMATOCRIT 41.7 % (37.9-51.0); HEMOGLOBIN 13.5 g/dL (13.5-17.0); HGB HCT DIFFERENCE -1.2; MEAN CORPUSCULAR HEMOGLOBIN 21.8 pg (27.0-33.4); MEAN CORPUSCULAR HGB CONC 32.2 g/dL (32.0-36.0); MEAN CORPUSCULAR VOLUME 68 fl (80-97); RED BLOOD COUNT 6.18 10^6/uL (4.35-5.55); RED CELL DISTRIBUTION WIDTH 15.2 % (11.5-14.0); WHITE BLOOD COUNT 10.6 10^3/uL (4.0-10.5)
[2017-02-23 06:39] LABS: ANION GAP 14 (5-19); BLOOD UREA NITROGEN 21 mg/dL (7-20); CALCIUM 9.1 mg/dL (8.4-10.2); CARBON DIOXIDE 28 mmol/L (22-30); CHLORIDE 101 mmol/L (98-107); CREATININE RESULT 1.18 mg/dL (0.52-1.25); GLUCOSE 128 mg/dL (75-110); POTASSIUM 4.8 mmol/L (3.6-5.0); SODIUM 142.7 mmol/L (137-145)
[2017-02-23] MEDS: FLUTICASONE/SALMETEROL DISKUS 500-50 MCG/DOSE IH SCH ×2 (10:12→21:44)
[2017-02-23] MEDS: FLUTICASONE NASAL SPRAY 50 MCG/SPRY 120 SPRAY/16 GM NASL SCH ×2 (10:12→21:45)
[2017-02-23] MEDS: ENOXAPARIN SODIUM INJ 40 MG/0.4 ML DISP.SYRIN SUBCUT SCH (10:29)
[2017-02-23] MEDS: FAMOTIDINE 20 MG TABLET PO SCH ×2 (10:34→21:44)
[2017-02-23] MEDS: GUAIFENESIN 600 MG TABLET.SA PO SCH ×2 (10:34→21:44)
[2017-02-23] MEDS: LORATADINE 10 MG TABLET PO SCH (10:34)
[2017-02-23] MEDS: LACTOBACILLUS ACIDOPHILUS 250 MG TAB PO SCH ×2 (10:35→18:52)
[2017-02-23] MEDS: CALAMINE/ZINC OXIDE LOTION 177 ML/BOTTLE TP SCH ×3 (10:36→18:52)
--- NOTE | 2017-02-23 13:35 | PDOC PROGRESS REPORT ---
Subjective Progress Note for:: 02/23/17 Subjective:: Patient was seen resting in bed comfortably on room air. He complains of continued dyspnea on exertion and audible wheezes, though slightly improved from yesterday. He states that he does not feel ready to be discharged home at this time. He denies fever, chills, regalado, dizziness, chest pain, palpitations, and cough. He has no other questions or concerns today. Physical Exam Vital Signs: Temp Pulse Resp BP Pulse Ox 97.5 F 71 18 133/70 H 96 02/23/17 12:06 02/23/17 12:06 02/23/17 12:06 02/23/17 12:06 02/23/17 12:06 Pulse Oximeter Continuous Start: 02/18/17 23: 35 Freq: RTQ4 Status: Active Document 02/23/17 12:00 [facility] (Rec: 02/23/17 12:16 [facility] [email or web address]) Pulse Oximetry Assessment Equipment Usage Equipment Standby Continuous SpO2 Machine # 4 Intake & Output 02/22/17 02/23/17 02/24/17 06:59 06:59 06:59 Intake Total 3577 4900 Balance 3577 4900 Weight 123.9 kg General appearance: PRESENT: no acute distress, obese, well-developed, well- nourished Head exam: PRESENT: atraumatic, normocephalic Eye exam: PRESENT: conjunctiva pink, EOMI, PERRLA. ABSENT: scleral icterus Ear exam: PRESENT: normal external ear exam Mouth exam: PRESENT: moist, tongue midline Neck exam: ABSENT: carotid bruit, JVD, lymphadenopathy, thyromegaly Respiratory exam: PRESENT: symmetrical, unlabored, wheezes - Late expiratory wheezing bilaterally. ABSENT: rales, rhonchi Cardiovascular exam: PRESENT: RRR. ABSENT: diastolic murmur, rubs, systolic murmur Pulses: PRESENT: normal dorsalis pedis pul Vascular exam: PRESENT: normal capillary refill GI/Abdominal exam: PRESENT: normal bowel sounds, soft. ABSENT: distended, guarding, mass, organolmegaly, rebound, tenderness Rectal exam: PRESENT: deferred Extremities exam: PRESENT: full ROM. ABSENT: calf tenderness, clubbing, pedal edema Neurological exam: PRESENT: alert, awake, oriented to person, oriented to place , oriented to time, oriented to situation, CN II-XII grossly intact. ABSENT: motor sensory deficit Psychiatric exam: PRESENT: appropriate affect, normal mood. ABSENT: homicidal ideation, suicidal ideation Skin exam: PRESENT: dry, intact, warm. ABSENT: cyanosis, rash Results Laboratory Results: 02/23/17 05:59 02/23/17 05:59 02/23/17 02/23/17 05:59 05:59 WBC 10.6 H RBC 6.18 H Hgb 13.5 Hct 41.7 MCV 68 L MCH 21.8 L MCHC 32.2 RDW 15.2 H Plt Count 285 Sodium 142.7 Potassium 4.8 Chloride 101 Carbon Dioxide 28 Anion Gap 14 BUN 21 H Creatinine 1.18 Est GFR ( Amer) > 60 Est GFR (Non-Af Amer) > 60 Glucose 128 H Calcium 9.1 02/19/17 02/19/17 02/19/17 00:19 05:28 12:30 Troponin I < 0.012 < 0.012 < 0.012 Impressions: Chest X-Ray 02/18/17 19:13 IMPRESSION: NO SIGNIFICANT RADIOGRAPHIC FINDING IN THE CHEST. Facial Bones CT 02/20/17 00:00 IMPRESSION: Mild sinus disease. There is no evidence of parotitis. There is no mass in the neck. Assessment & Plan - Diagnosis (1) Acute asthma exacerbation Qualifiers: Asthma severity: severe Asthma persistence: persistent Qualified Code(s) : J45.51 - Severe persistent asthma with (acute) exacerbation Is this a current diagnosis for this admission?: Yes Plan: Slow improvements; pt now using BiPAP qHS only. Otherwise, he is maintaining oxygen saturations on room air while at rest. He did maintain ambulatory room air saturations greater than 92% with a heart rate of 86. Continues to have wheezing. Will continue steroids and scheduled Duonebs. 1- BiPap qHS and prn 2- Supplemental oxygen to keep oxygen saturations > 90% 3- Solu-Medrol 40 mg every 8 4- Scheduled Duonebs and prn Xopenex 5- Singulair daily 6- Continue Advair (2) ARF (acute renal failure) Qualifiers: Acute renal failure type: unspecified Qualified Code(s): N17.9 - Acute kidney failure, unspecified Is this a current diagnosis for this admission?: Yes Plan: Resolved. Unknown baseline kidney function, there is likely a component of chronic kidney disease given his obesity and uncontrolled type 2 diabetes mellitus. Creatinine currently 1.18. Appears to be baseline. (3) DM2 (diabetes mellitus, type 2) Qualifiers: Diabetes mellitus complication status: without complication Diabetes mellitus halfway insulin use: without buttermaker helper use Qualified Code(s): E11.9 - Type 2 diabetes mellitus without complications Is this a current diagnosis for this admission?: Yes Plan: 1-Metformin 8-Vfkj-Sfoca before meals and at bedtime with sliding scale coverage (4) JAMES (obstructive sleep apnea) Is this a current diagnosis for this admission?: Yes Plan: 1- BiPAP qHS (5) Poison yan dermatitis Is this a current diagnosis for this admission?: Yes Plan: Calamine prn (6) Sore throat Is this a current diagnosis for this admission?: Yes Plan: Improved. Likely r/t post nasal drip; now with CT confirmed mild sinusitis supporting conclusion. 1- Continue with flonase, chloraseptic spray, antihistamines. 2- Encouraged p.o. fluid intake (7) Severe obesity (BMI 35.0-35.9 with comorbidity) Is this a current diagnosis for this admission?: Yes (8) Lymphadenopathy, submandibular Is this a current diagnosis for this admission?: Yes Plan: Stable. Patient and family member report several months of facial swelling. He has been seen by his dentist and primary care provider who is currently attempting to find an in network referral to ENT for evaluation. Contrasted facial CT was completed yesterday and demonstrated mild sinus disease without evidence of parotiditis or masses in the neck. He was started on clindamycin yesterday for empiric coverage parotiditis; this will be continued as it will also provide appropriate coverage for sinusitis which may be the source of his lymphadenopathy. Results were discussed with the patient, recommend that he follow-up with primary care provider and continue with plan to be evaluated by ENT if symptoms do not resolve after completion of antibiotic course. - Time Time Spent with patient: 25-34 minutes Anticipated discharge: Home Within: within 24 hours
[2017-02-23] MEDS: MONTELUKAST SODIUM 10 MG TABLET PO SCH (21:44)
[2017-02-24] MEDS: IPRATROPIUM/ALBUTEROL 0.5-2.5 MG/3 ML AMPUL NEB SCH ×3 (01:43→13:29)
[2017-02-24] MEDS: CLINDAMYCIN HCL 150 MG CAPSULE PO SCH ×2 (05:39→12:11)
[2017-02-24] MEDS: METHYLPREDNISOLONE INJ 40 MG/1 ML SDV IV SCH (05:39)
[2017-02-24] MEDS: ENOXAPARIN SODIUM INJ 40 MG/0.4 ML DISP.SYRIN SUBCUT SCH (09:52)
[2017-02-24] MEDS: FLUTICASONE/SALMETEROL DISKUS 500-50 MCG/DOSE IH SCH (09:53)
[2017-02-24] MEDS: FLUTICASONE NASAL SPRAY 50 MCG/SPRY 120 SPRAY/16 GM NASL SCH (09:53)
[2017-02-24] MEDS: FAMOTIDINE 20 MG TABLET PO SCH (09:53)
[2017-02-24] MEDS: METFORMIN HCL 500 MG TABLET PO SCH (09:54)
[2017-02-24] MEDS: LACTOBACILLUS ACIDOPHILUS 250 MG TAB PO SCH (09:54)
[2017-02-24] MEDS: LORATADINE 10 MG TABLET PO SCH (09:54)
[2017-02-24] MEDS: GUAIFENESIN 600 MG TABLET.SA PO SCH (09:55)
[2017-02-24] MEDS: CALAMINE/ZINC OXIDE LOTION 177 ML/BOTTLE TP SCH ×2 (09:55→13:37)
[2017-02-24] MEDS ORDERED: PREDNISONE 20 MG TABLET PO ONE (13:18)
[2017-02-24 13:26] VITALS: BP 116/76
--- NOTE | 2017-02-24 15:31 | PDOC DISCHARGE SUMMARY ---
General - Admit/Disc Date/PCP Admission Date/Primary Care Provider: 02/18/17 23:40 DUC GALVEZ Discharge Date: 02/24/17 - Discharge Diagnosis (1) Acute asthma exacerbation Is this a current diagnosis for this admission?: Yes Summary: Patient was admitted with asthma exacerbation initially required continuous nebulizer treatments and IV magnesium. He was placed on BiPAP and started on IV Solu-Medrol. He was transitioned to p.o. steroids the following day. Unfortunately, he experienced rapid worsening of his asthma with increased dyspnea, hypoxia on supplemental oxygen requiring more continuous BiPAP for support, and audible wheezing. IV Solu-Medrol at escalated dosing was resumed with, again, improvement in symptoms. He was continued on IV Solu-Medrol and wean slowly over the following 3 days. Since been transitioned back to p.o. prednisone, has successfully been weaned to room air, and is ambulatory while maintaining O2 sats greater than 95%. At this time patient is requesting to be discharged home. He will be provided a prescription for a new nebulizer as he states that his machine is old and questions whether or not it was adequately aerosolizing his medications. He will also be provided prescriptions for DuoNeb and prednisone taper. (2) ARF (acute renal failure) Is this a current diagnosis for this admission?: Yes Summary: Patient experienced worsening of creatinine following CT with contrast. He was provided IV fluids with return to baseline kidney function. (3) DM2 (diabetes mellitus, type 2) Is this a current diagnosis for this admission?: Yes Summary: Metformin was held while inpatient. He was provided Humalog for sliding scale coverage (4) JAMES (obstructive sleep apnea) Is this a current diagnosis for this admission?: Yes Summary: Patient was placed on BiPAP as needed and nightly. (5) Lymphadenopathy, submandibular Is this a current diagnosis for this admission?: Yes Summary: Patient was noted to have a significantly swollen jaw with evidence of lymphadenopathy. He states that this is been ongoing for several months and waxes and wanes. He reports that his primary care provider is attempting to find an ENT within his insurance network for follow-up. A contrasted CT was obtained to evaluate for parotiditis and he was placed empirically on clindamycin pending results. CT demonstrated a mild chronic sinusitis and so the clindamycin was continued. He will be provided a prescription to complete a total of 14 day course of therapy. (6) Poison yan dermatitis Is this a current diagnosis for this admission?: Yes Summary: Poison yan dermatitis was present on arrival. He was provided calamine lotion as needed for comfort. Additionally, he was on high-dose steroid therapy for his asthma exacerbation. The dermatitis had resolved by day of discharge. (7) Sore throat Is this a current diagnosis for this admission?: Yes Summary: Related to viral URI symptoms that precipitated asthma exacerbation event. He was provided Chloraseptic Melvin for comfort. (8) Severe obesity (BMI 35.0-35.9 with comorbidity) Is this a current diagnosis for this admission?: Yes - Additional Information Resuscitation Status: Full Code Discharge Diet: Diabetic Discharge Activity: Activity As Tolerated, Slowly Increase Activity Home Medications: Albuterol Sulfate [Albuterol Sulfate 2.5mg/3 mL] 1 vial NEB Q4 PRN 02/18/17 Albuterol Sulfate [Ventolin Hfa] 2 puff IN Q4HP PRN 02/18/17 Metformin HCl 500 mg PO DAILY 02/18/17 Montelukast Sodium 10 mg PO QPM 02/18/17 Clindamycin HCl [Cleocin 150 mg Capsule] 300 mg PO Q6 #40 capsule 02/24/17 Cyclobenzaprine HCl [Flexeril 5 mg Tablet] 5 mg PO TID #15 tablet 02/24/17 Guaifenesin [Mucinex Sr 600 mg Tablet.sa] 600 mg PO Q12 #60 tablet.sa 02/24/17 Guaifenesin/Codeine Phosphate [Tusso-C Syrup] 5 ml PO Q4HP PRN #120 ml 02/24/17 Ipratropium/Albuterol Sulfate [Duoneb 3 ml Ampul] 3 ml [facility] RTQ6 #100 vial.[facility] Nebulizer [Nebulizer Machine] 1 each MC ASDIR PRN #1 kit 02/24/17 Prednisone 20 mg PO ASDIR PRN #20 tablet 02/24/17 History of Present Illness History of Present Illness: Per H&P by Dr. Huffman: IGNACIO SHEARER is a 41 year old male with a past medical history of asthma, diabetes, obstructive sleep apnea who presents to emergency department with shortness of breath. Patient reports that he had is at about 48 hours of sneezing, congestion, and rhinorrhea. He went to his primary care physician yesterday and was prescribed Levaquin and prednisone. He reports that he began having worsening chest tightness and difficulty breathing today and took a breathing treatment and use his inhaler but this did not help. He reports that he was hospitalized last year for his asthma. He denied any associated fever or chills with this process but does report a history of yellow phlegm production. He patient received 6 nebulized treatments in the emergency department and required IV magnesium in the use of BiPAP in order to maintain an acceptable oxygen saturation. He is referred to the hospitalist service for asthma exacerbation. Physical Exam Vital Signs: Temp Pulse Resp BP Pulse Ox 97.6 F 65 14 116/76 95 02/24/17 13:25 02/24/17 13:28 02/24/17 13:28 02/24/17 13:25 02/24/17 13:28 Pulse Oximeter Continuous Start: 02/18/17 23: 35 Freq: RTQ4 Status: Active Document 02/24/17 13:28 [facility] (Rec: 02/24/17 13:50 [facility] [email or web address]) Pulse Oximetry Assessment Oxygen Saturation (92-100) 95 Oxygen Delivery Method Room Air Fraction of Inspired Oxygen (FIO2) 21 Equipment Usage Equipment in Use Continuous SpO2 Machine # n 4 Intake & Output 02/23/17 02/24/17 02/25/17 06:59 06:59 06:59 Intake Total 4900 3713 973 Balance 4900 3713 973 Weight 124 kg General appearance: PRESENT: no acute distress, obese, well-developed, well- nourished Head exam: PRESENT: atraumatic, normocephalic Eye exam: PRESENT: conjunctiva pink, EOMI, PERRLA. ABSENT: scleral icterus Ear exam: PRESENT: normal external ear exam Mouth exam: PRESENT: moist, tongue midline Neck exam: ABSENT: carotid bruit, JVD, lymphadenopathy, thyromegaly Respiratory exam: PRESENT: symmetrical, unlabored, wheezes - Slight, late expiratory wheeze to RUL. ABSENT: rales, rhonchi Cardiovascular exam: PRESENT: RRR. ABSENT: diastolic murmur, rubs, systolic murmur, tachycardia Pulses: PRESENT: normal dorsalis pedis pul Vascular exam: PRESENT: normal capillary refill GI/Abdominal exam: PRESENT: normal bowel sounds, soft. ABSENT: distended, guarding, mass, organolmegaly, rebound, tenderness Rectal exam: PRESENT: deferred Extremities exam: PRESENT: full ROM. ABSENT: calf tenderness, clubbing, pedal edema Neurological exam: PRESENT: alert, awake, oriented to person, oriented to place , oriented to time, oriented to situation, CN II-XII grossly intact. ABSENT: motor sensory deficit Psychiatric exam: PRESENT: appropriate affect, normal mood. ABSENT: homicidal ideation, suicidal ideation Skin exam: PRESENT: dry, intact, warm. ABSENT: cyanosis, rash Results Laboratory Results: 02/23/17 05:59 02/23/17 05:59 02/19/17 05:28 Blood Blood Culture - Final NO GROWTH IN 5 DAYS 02/19/17 00:19 Blood Blood Culture - Final NO GROWTH IN 5 DAYS 02/19/17 02/19/17 02/19/17 00:19 05:28 12:30 Troponin I < 0.012 < 0.012 < 0.012 Impressions: Chest X-Ray 02/18/17 19:13 IMPRESSION: NO SIGNIFICANT RADIOGRAPHIC FINDING IN THE CHEST. Facial Bones CT 02/20/17 00:00 IMPRESSION: Mild sinus disease. There is no evidence of parotitis. There is no mass in the neck. Qualifiers PATEINT BEING DISCHARGED WITH ANY OF THE FOLLOWING DIAGNOSIS?: No
[2017-02-25] MEDS ORDERED: PREDNISONE 20 MG TABLET PO SCH (10:00)
== END 2017-02-24 17:58 | disposition home or self-care (01) | DRG 202 ==
LOC: ER 18:53 → EH 23:40 → 3W 02-19 01:50
PROVIDERS: ADMIT Family Medicine; ATTEND Family Medicine
DX: J45.51 Severe persistent asthma with (acute) exacerbation (principal); N17.9 Acute kidney failure, unspecified; E11.9 Type 2 diabetes mellitus without complications; G47.33 Obstructive sleep apnea (adult) (pediatric); L23.7 Allergic contact dermatitis due to plants, except food; R59.0 Localized enlarged lymph nodes; J02.9 Acute pharyngitis, unspecified; K11.20 Sialoadenitis, unspecified; E66.01 Morbid (severe) obesity due to excess calories; Z68.37 Body mass index [BMI] 37.0-37.9, adult; Z87.891 Personal history of nicotine dependence; Z79.51 Long term (current) use of inhaled steroids; Z79.52 Long term (current) use of systemic steroids; Z79.899 Other long term (current) drug therapy
CPT/HCPCS: 36415; 70487; 71020; 80048; 80053; 81001; 82803; 82962; 84484; 85025; 85027; 87040; 87804; 93005; 93010; 94640; 94660; 94667; 94668; 94762; 94799; 96372; 99291; J1650; J1815; J2920; J2930; J3475; J3490; J7030; J7512; J7620

== ENCOUNTER → 2017-04-25 | Outpatient (CLI) | payer OTHER ==
--- NOTE | 2017-04-25 14:40 | RADIOLOGY REPORT (SQ) ---
EXAM DESCRIPTION: ANKLE LEFT COMPLETE COMPLETED DATE/TIME: 04/25/2017 1:40 pm REASON FOR STUDY: PAIN IN LEFT ANKLE AND JOINTS OF LEFT FOOT COMPARISON: None. NUMBER OF VIEWS: Three views right ankle. LIMITATIONS: None. FINDINGS: Normal bone density. No fracture or lesion. Medial and lateral soft tissue swelling. Sm all joint effusion. OTHER: No other significant finding. IMPRESSION: Small joint effusion and soft tissue swelling. No fracture appreciated. TECHNICAL DOCUMENTATION: JOB ID: [id number]
== END ==
LOC: OD 13:22
PROVIDERS: ATTEND Internal Medicine
DX: M25.572 Pain in left ankle and joints of left foot (principal); M25.471 Effusion, right ankle

== ENCOUNTER → 2018-09-12 | Outpatient (CLI) | payer OTHER ==
--- NOTE | 2018-09-12 13:52 | RADIOLOGY REPORT (SQ) ---
EXAM DESCRIPTION: CHEST PA/LATERAL COMPLETED DATE/TIME: 09/12/2018 1:20 pm REASON FOR STUDY: CHEST PAIN COMPARISON: 02/18/2017 EXAM PARAMETERS: NUMBER OF VIEWS: two views TECHNIQUE: Digital Frontal and Lateral radiographic views of the chest acquired. RADIATION DOSE: NA LIMITATIONS: none FINDINGS: LUNGS AND PLEURA: No opacities, masses or pneumothorax. No pleural effusion. MEDIASTINUM AND HILAR STRUCTURES: No masses or contour abnormalities. HEART AND VASCULAR STRUCTURES: Heart normal size. No evidence for failure. BONES: No acute findings. HARDWARE: None in the chest. OTHER: No other significant finding. IMPRESSION: NO SIGNIFICANT RADIOGRAPHIC FINDING IN THE CHEST. TECHNICAL DOCUMENTATION: JOB ID: [id number] [employer]- All Rights Reserved Reading location - IP/workstation name: [email or web address]
== END ==
LOC: OD 13:05
PROVIDERS: ATTEND Internal Medicine
DX: R07.9 Chest pain, unspecified (principal); D29.4 Benign neoplasm of scrotum
CPT/HCPCS: 71046

== ENCOUNTER 2020-02-16 02:04 | Emergency (ER) | payer OTHER ==
[2020-02-16] MEDS ORDERED: DIAZEPAM INJ 10 MG/2 ML DISP.SYRIN IV ONE (02:37)
--- NOTE | 2020-02-16 02:41 | ER Document Report ---
ED General - General Chief Complaint: Abdominal Pain Stated Complaint: RIB PAIN Time Seen by Provider: 02/16/20 02:27 Primary Care Provider: DUC GALVEZ MD [Primary Care Provider] - Follow up as needed Notes: Patient is a 44-year-old male who comes emergency department for chief complaint of sharp pain in his left upper abdomen. Patient states that he felt fine during the day, he states this evening he suddenly violently sneezed, he states after he did so he started getting sharp pain underneath the left rib in the upper abdomen. He states he feels like he cannot lie down, he has to hold still, if he moves he will be worse and he will have a sudden severe stabbing pain in the area. He denies dizziness, difficulty breathing, shortness of breath, chest pain, passing out, flank pain, vomiting, nausea. He denies history of the same. He takes Metformin for type 2 diabetes, denies smoking, alcohol, recreational drugs. Denies medical history otherwise. TRAVEL OUTSIDE OF THE [place] IN LAST 30 DAYS: No - Related Data Allergies/Adverse Reactions: Penicillins Allergy (Verified 02/18/17 18:58) Home Medications: Metformin, nebulizer albuterol, Past Medical History - General Information source: Patient - Social History Smoking Status: Never Smoker Frequency of alcohol use: Occasional Drug Abuse: None Lives with: Family Family History: COPD, DM Patient has homicidal ideation: No Pulmonary Medical History: Reports: Hx Asthma, Hx Sleep Apnea Endocrine Medical History: Reports: Hx Diabetes Mellitus Type 2 Renal/ Medical History: Denies: Hx Peritoneal Dialysis Review of Systems - Review of Systems Constitutional: No symptoms reported EENT: No symptoms reported Cardiovascular: No symptoms reported Respiratory: No symptoms reported Gastrointestinal: See HPI Genitourinary: No symptoms reported Male Genitourinary: No symptoms reported Musculoskeletal: See HPI Skin: No symptoms reported Hematologic/Lymphatic: No symptoms reported Neurological/Psychological: No symptoms reported Physical Exam - Vital signs Vitals: Temp Pulse Resp BP Pulse Ox 97.4 F 64 18 183/102 H 100 02/16/20 02:11 02/16/20 02:11 02/16/20 02:11 02/16/20 02:11 02/16/20 02:11 - Notes Notes: GENERAL: Patient sitting up, uncomfortable, occasionally cries out and grabs at his left upper abdominal quadrant. HEAD: Normocephalic, atraumatic. EYES: Pupils equal, round, and reactive to light. Extraocular movements intact. ENT: Oral mucosa moist, tongue midline. Oropharynx unremarkable. Airway patent. NECK: Full range of motion. Supple. Trachea midline. No lymphadenopathy. LUNGS: Clear to auscultation bilaterally, no wheezes, rales, or rhonchi. No respiratory distress. Non-tender chest wall. HEART: Regular rate and rhythm. No murmur ABDOMEN: There is some tenderness in the left upper quadrant of the abdomen extending over to the side of the abdomen in the mid axillary line. There is no overt specific area of severe tenderness or guarding, no signs of trauma. Remaining abdomen unremarkable. EXTREMITIES: Moves all 4 extremities spontaneously. No edema, normal radial and dorsalis pedis pulses bilaterally. No cyanosis. BACK: no cervical, thoracic, lumbar midline tenderness. No saddle anesthesia, normal distal neurovascular exam. Moves all extremities in full range of motion although with a lot of pain when moving the left arm/shoulder. NEUROLOGICAL: Alert and oriented x3. Normal speech. Cranial nerves II through XII grossly intact. Strength 5/5 in all extremities. PSYCH: Normal affect, normal mood. SKIN: Warm, dry, normal turgor. No rashes or lesions noted. Course - Re-evaluation Re-evalutation: Patient initially appeared to be in a lot of pain. He does have pain that is much worse when we attempt to perform position changes or when we lie him down. He is more comfortable at rest. He does have some tenderness over the left upper quadrant and along the side but I cannot find 1 specific area of tenderness. No trauma. Patient is hypertensive but vital signs otherwise unremarkable. Chest x-ray unremarkable, laboratory work-up unremarkable, patient reevaluated after IV Valium. Patient still reporting essentially the same symptoms although slightly improved. He still occasionally will cry out and grab at his left upper quadrant area. I did discuss with Dr. Dunn. Because of patient's level of discomfort decision was made for him CT to rule out acute perforation, internal hemorrhage, or other injury. Patient is very agreeable with this. On reevaluation patient is more comfortable but still appears to have a lot of pain with movement. At rest patient has no signs of distress. CT without any acute findings. Low suspicion of life-threatening etiology based on his work-up and reevaluation's. Suspect musculoskeletal source. I discussed details with patient, discussed treatment options, expectations, follow-up, and return precautions. Patient states understanding and agreement. - Vital Signs Vital signs: Temp Pulse Resp BP Pulse Ox 97.6 F 69 20 138/92 H 98 02/16/20 06:01 02/16/20 06:01 02/16/20 06:01 02/16/20 06:01 02/16/20 06:01 - Laboratory Result Diagrams: 02/16/20 02:30 02/16/20 02:30 Laboratory results interpreted by me: 02/16/20 02/16/20 02/16/20 02:30 02:30 04:42 RBC 6.08 H MCV 67 L MCH 22.3 L RDW 14.9 H Glucose 203 H Urine Glucose (UA) 150 H Discharge - Discharge Clinical Impression: Side pain Condition: Stable Disposition: HOME, SELF-CARE Additional Instructions: No concerning findings are seen on your evaluation tonight. I suspect this is from torn muscle fibers and muscle spasms. This should simply heal with time. Avoid lifting or twisting, apply heat to the area, take the anti-inflammatory and diazepam as a muscle x-rays prescribed, drink plenty of fluids and rest. Soreness will probably progress over the next 2 days and then should gradually declined. Follow-up with primary care for additional management. Return if you worsen including severe worsening pain, vomiting, passing out, or any other concerning or worsening symptoms. Prescriptions: Naproxen 500 mg PO BID PRN #20 tablet PRN Reason: Diazepam [Valium 5 mg Tablet] 1 - 2 tab PO TID PRN #15 tablet PRN Reason: Forms: Return to Work Referrals: DUC GALVEZ MD [Primary Care Provider] - Follow up as needed
[2020-02-16 02:45] LABS: ABSOLUTE BASOPHILS # (AUTO) 0.1 10^3/uL (0.0-0.2); ABSOLUTE EOSINOPHILS # (AUTO) 0.4 10^3/uL (0.0-0.6); ABSOLUTE LYMPHOCYTES (AUTO) 2.6 10^3/uL (0.5-4.7); ABSOLUTE MONOCYTES (AUTO) 0.5 10^3/uL (0.1-1.4); ABSOLUTE NEUT (AUTO) 4.3 10^3/uL (1.7-8.2); BASOPHILS % (AUTO) 1.1 % (0-2); EOSINOPHILS % (AUTO) 5.5 % (0-6); HEMATOCRIT 40.7 % (37.9-51.0); HEMOGLOBIN 13.6 g/dL (13.5-17.0); LYMPHOCYTES % (AUTO) 33.1 % (13-45); MEAN CORPUSCULAR HEMOGLOBIN 22.3 pg (27.0-33.4); MEAN CORPUSCULAR HGB CONC 33.4 g/dL (32.0-36.0); MEAN CORPUSCULAR VOLUME 67 fl (80-97); MONOCYTES % (AUTO) 6.5 % (3-13); PLATELET COUNT 272 10^3/uL (150-450); RED BLOOD COUNT 6.08 10^6/uL (4.35-5.55); RED CELL DISTRIBUTION WIDTH 14.9 % (11.5-14.0); SEGMENTED NEUTROPHILS % (AUTO) 53.8 % (42-78); TOTAL CELLS COUNTED % (AUTO) 100 %; WHITE BLOOD COUNT 7.9 10^3/uL (4.0-10.5)
[2020-02-16 03:01] LABS: ALBUMIN 4.5 g/dL (3.5-5.0); ALKALINE PHOSPHATASE 101 U/L (38-126); ANION GAP 12 (5-19); ASPARTATE AMINO TRANSFERASE 32 U/L (17-59); BILIRUBIN,DIRECT 0.2 mg/dL (0.0-0.4); BILIRUBIN,TOTAL 0.7 mg/dL (0.2-1.3); BLOOD UREA NITROGEN 13 mg/dL (7-20); CALCIUM 9.4 mg/dL (8.4-10.2); CARBON DIOXIDE 26 mmol/L (22-30); CHLORIDE 102 mmol/L (98-107); GLUCOSE 203 mg/dL (75-110); POTASSIUM 4.3 mmol/L (3.6-5.0); TOTAL PROTEIN 7.4 g/dL (6.3-8.2)
[2020-02-16] MEDS ORDERED: ONDANSETRON HCL INJ/PF 4 MG/2 ML SDV IV ONE (03:40)
[2020-02-16] MEDS ORDERED: MORPHINE SULFATE 10 MG/ML INJ IV ONE (03:40)
--- NOTE | 2020-02-16 03:43 | RADIOLOGY REPORT (SQ) ---
CLINICAL HISTORY: sharp left lower rib pain COMPARISON: None. TECHNIQUE: XR CHEST 1 VIEW 02/16/2020 2:39 AM [employer]EL[employer] FAB FINDINGS: Cardiac silhouette is normal in size. Lungs are clear without consolidation, atelectasis, mass or edema. There is no pleural effusion. There is no pneumothorax. There are no acute osseous findings. IMPRESSION: Clear lungs.
[2020-02-16] MEDS ORDERED: FENTANYL CITRATE INJ/PF 100 MCG/2 ML AMPUL IV ONE (05:03)
[2020-02-16 05:24] LABS: APPEARANCE,URINE CLEAR; BILIRUBIN,URINE NEGATIVE (NEGATIVE); COLOR,URINE YELLOW; GLUCOSE, URINE 150 mg/dL (NEGATIVE); KETONES,URINE NEGATIVE (NEGATIVE); LEUKOCYTE ESTERASE,URINE NEGATIVE (NEGATIVE); NITRITE,URINE NEGATIVE (NEGATIVE); PROTEIN,URINE NEGATIVE (NEGATIVE); URINE SPECIFIC GRAVITY 1.044; UROBILINOGEN,URINE NEGATIVE mg/dL (<2.0)
--- NOTE | 2020-02-16 05:29 | RADIOLOGY REPORT (SQ) ---
EXAM: CT abdomen and pelvis with IV contrast CLINICAL DATA: 44 years Male severe left sided pain TECHNICAL DATA: Axial CT imaging of the abdomen and pelvis was performed following the administration of intravenous contrast.. Oral contrast was not administered. Sagittal and coronal reconstructed images were then performed. The CT study is performed according to ALARA (as low as reasonably achievable) or ALARA/IMAGE GENTLY, with automatic adjustment of mA and/or kV according to patient size. Performed on: 02/16/2020 at 4:22 AM. Comparison: None FINDINGS: Lung bases: The lung bases are clear. Liver: The liver is enlarged and measures 21 cm in craniocaudal dimension. No focal hepatic abnormalities are identified. There is decreased attenuation of the liver commonly seen with fatty infiltration. The hepatic and portal veins are patent. Spleen:The spleen is normal is size, configuration and attenuation. Gallbladder and bile duct: The gallbladder is well distended and unremarkable. There is no biliary ductal dilatation. Pancreas: The pancreas is grossly normal in size and configuration. Adrenal Glands:The adrenal glands are normal in size and configuration. Kidneys:The kidneys are normal in size and configuration. There is no evidence of hydronephrosis. There is no evidence of nephrolithiasis. No definite solid or cystic renal mass lesions are identified. Stomach:The stomach is grossly normal. There is no definite hiatal hernia. Bowel:The bowel gas pattern is non specific and non obstructive. Appendix: The appendix is normal. Free air:There is no evidence of free air. Free fluid: There is no evidence of free fluid. Vasculature: The aorta is normal in caliber and contour. The inferior vena cava is grossly unremarkable. Lymphadenopathy: No pathologic lymphadenopathy is identified. Bladder: The bladder is well distended and smooth in contour. Reproductive: The prostate gland is grossly within normal limits. Bones: No acute osseous abnormalities are identified. Soft tissues: No focal soft tissue abnormalities are identified. IMPRESSION: 1. No evidence of acute intra-abdominal or intrapelvic pathology. 2. Hepatomegaly and decreased attenuation of the liver commonly due to fatty infiltration. 3. There are no findings on this examination to explain the patient's severe left sided pain.
[2020-02-16 06:02] VITALS: BP 138/92
== END 2020-02-16 06:02 | disposition home or self-care (01) ==
LOC: ER 02:04
DX: R10.12 Left upper quadrant pain (principal); E11.9 Type 2 diabetes mellitus without complications; Z79.84 Long term (current) use of oral hypoglycemic drugs; Z88.0 Allergy status to penicillin
CPT/HCPCS: 99285; 96374; 96375; 36415; 83690; 85025; 80053; 81001; 71045; 74177; J3360; J3010; J2270; J2405

== ENCOUNTER 2020-04-21 08:01 | Day surgery (SDC) | payer OTHER ==
[~2020-04-21 08:01] MED LIST: PROPOFOL INJ 200 MG/20 ML VIAL IV ONE
[2020-04-21 10:39] VITALS: BP 131/89
--- NOTE | 2020-04-21 10:39 | Operative Report ---
Operative Report DATE OF SURGERY: 04/21/20 Operative Report: The risks benefits and alternatives of the procedure explained to the patient in detail and informed consent is obtained.A GIF Olympus video scope was inserted into the patient's mouth and hypopharynx, the esophagus is identified intubated and insufflated, the scope was then advanced through the esophagus stomach and duodenum, retroflexion maneuver is done ,the esophagus stomach and first and second portions of the duodenum examined PREOPERATIVE DIAGNOSIS: Dyspepsia POSTOPERATIVE DIAGNOSIS: Duodenitis. Gastritis status post biopsy. Esophagitis status post biopsy. Hiatal hernia OPERATION: EGD with biopsy SURGEON: KIMANI ESTRADA ANESTHESIA: LMAC TISSUE REMOVED OR ALTERED: As noted above. COMPLICATIONS: None. ESTIMATED BLOOD LOSS: None. INTRAOPERATIVE FINDINGS: As noted above. PROCEDURE: Patient tolerated the procedure well. No immediate postprocedure complications are noted. Patient is discharged in good condition. Discharge date 04/21/2020. Discharge diet: Regular. Discharge activity: Regular. 2 to 3-week follow-up to discuss findings. Patient is instructed to call the office or proceed to the emergency room should there be any further problems or questions. Wait on the pathology.
== END 2020-04-21 11:00 | disposition home or self-care (01) ==
LOC: OROUT 08:01
PROVIDERS: ATTEND Internal Medicine Gastroenterology
DX: K29.50 Unspecified chronic gastritis without bleeding (principal); K29.80 Duodenitis without bleeding; K44.9 Diaphragmatic hernia without obstruction or gangrene; K20.90 Esophagitis, unspecified without bleeding; J45.909 Unspecified asthma, uncomplicated; E11.9 Type 2 diabetes mellitus without complications; E66.9 Obesity, unspecified; G47.33 Obstructive sleep apnea (adult) (pediatric); Z79.84 Long term (current) use of oral hypoglycemic drugs; Z87.891 Personal history of nicotine dependence; Z79.899 Other long term (current) drug therapy; Z68.38 Body mass index [BMI] 38.0-38.9, adult
CPT/HCPCS: 43239; 82962; 88305 ×2; 00731; J2704; 731